=== PATIENT | female | born 1940 | race Caucasian/White ===

== ENCOUNTER 2024-10-28 17:09 | Inpatient (IN) | payer MEDICARE, SELFPAY ==
[2024-10-28 17:14] VITALS: BP 130/85; PULSE 109; RESP 15; TEMP 36.4; O2SAT 97; BMI 15.1
--- NOTE | 2024-10-28 18:21 | ED_ITS ---
HPI - Abdominal Pain 2 General: Chief Complaint: Abdominal Pain Stated Complaint: Right side pain Time Seen by Provider: 10/28/24 18:00 Source: patient Mode of arrival: ambulatory Limitations: no limitations History of Present Illness: 84-year-old female who states that she h as been having diffuse abdominal pain over the last week. States the pain is worse in her upper abdomen. She denies any vomiting or diarrhea denies any fever states pain is worse with movement rates her pain 8 out of 10 currently. Associated Symptoms: Denies chills, diarrhea, dysuria, fever(s), nausea and vomiting Related Data Allergies Allergy/AdvReac Type Severity Reaction Status Date / Time acetaminophen (From Tylenol) Allergy ALGY-Hives Verified 10/28/24 17:20 Sulfa (Sulfonamide Allergy ALGY-Hives Verified 10/28/24 17:20 Antibiotics) Review of Systems 2 Const: Denies: fever(s), chills, body aches or change in appetite ENMT: Denies: throat pain or dental pain Card: Denies: chest pain Resp: Denies: dyspnea GI: Reports: abdominal pain; Denies: nausea, vomiting or diarrhea : Denies: dysuria Musc: Denies: neck pain or back pain Skin/Breast: Denies: rash Neuro: Denies: headache(s) Physical Exam 2 Const: COMMON NORMALS: no acute distress, patient oriented x3 and healthy appearing HENMT: COMMON NORMALS: normocephalic and atraumatic HEAD & SCALP: n ormocephalic and atraumatic Eye: COMMON NORMALS: conjunctivae normal CONJUNCTIVA: Yes conjunctivae normal Neck/C-Spine: COMMON NORMALS: full ROM and supple Chest: COMMONS NORMALS: normal inspection of the chest Resp: COMMON NORMALS: normal respiratory effort, No retractions, No use of accessory muscles and clear to auscultation bilaterally AUSCULTATION: clear to auscultation bilaterally Cardio: COMMON NORMALS: regular rate, regular rhythm and No murmurs present (Cardio) RATE: regular rate RHYTHM: regular rhythm GI: COMMON NORMALS: Normal to inspection, nondistended, normoactive bowel sounds present, Soft to palpation and no masses PALPATION: Yes Soft to palpation OTHER: diffuse tenderness Extremity: COMMON NORMALS: normal to inspection and full ROM Neuro: COMMON NORMALS: patient oriented x3, moves all extremities and no focal motor deficits Psych: COMMON NORMALS: mental status grossly normal, Normal thought process present and cooperative THOUGHT PROCESS: Normal thought process present Skin: COMMON NORMALS: no rashes or lesions noted and no wounds GENERAL SKIN EXAM: no rashes or lesions noted Course 2 Vital Signs: Vital signs: Vital Signs Temperature 97.5 F L 10/28/24 17:14 Pulse Rate 101 H 10/28/24 19:53 Respiratory Rate 16 10/28/24 19:53 Blood Pressure 140/81 10/28/24 19:53 Pulse Oximetry 93 10/28/24 19:53 Oxygen Delivery Me thod Room Air 10/28/24 19:53 MDM - Abdominal Pain Medical Decision Making Patient presents here with abdominal pain CT showed colitis versus a carcinoma she does have an elevated white count her lactate is normal afebrile will start on antibiotics I did speak to surgeon on-call who was consulted we will admit to the hospitalist at this time. Medical Records I reviewed the patient's medical records. Lab Data I reviewed the patient's lab results. 10/28/24 18:27 10/28/24 18:27 Labs/Radiology: Radiology Impressions Abdomen/Pelvis CT 10/28/24 18:21 IMPRESSION: 1. Edema and wall thickening of the anterior wall of the transverse, which is inseparable from the anterior peritoneal reflection. There is anterior peritoneal omental caking, infiltration and haziness. There is no organized collection. Findings are indeterminate and may represent peritoneal/omental carcinomatosis from colonic malignancy, primary mesenteric malignancy or sequela of chronic colitis with peritonitis, although malignancy should be excluded. 2. Saccular aneurysm of the abdominal aorta, below the level of the renal artery origins and terminating 2.9 cm above the level of the aortic bifurcation. The aorta is dilated up to 3.3 cm. 3. Chronic appearing fracture of the proximal sacral body. 4. Emphysematous changes of the visualized lungs. 5. Large colonic stool burden. COMMENTS: Consistent with the [employer]'s Incidental Findings Committee white paper (J Am Dom Radiol 2018): Any incidental renal lesion less than 1 cm or classified as too small to characterize, or any incidental cystic renal lesion characterized as simple-appearing, is likely benign. No follow-up imaging is recommended for these lesions per consensus recommendations based on imaging criteria. Laboratory Results WBC 20.83 10^3/uL (3.29-11.43) H 10/28/24 18: RBC 4.85 10^6/uL (3.85-5.65) 10/28/24 18: Hgb 14.40 g/dL (11.27-16.99) 10/28/24 18: Hct 42.9 % (36-47) 10/28/24 18: MCV 88.5 fl (85-98) 10/28/24 18: MCH 29.7 pg (27-33) 10/28/24 18: MCHC 33.6 g/dL (30-55) 10/28/24 18: RDW 14.5 % (12.1-15.1) 10/28/24 18: Plt Count 499 10^3/cmm (157-399) H 10/28/24 18: MPV 9.5 fL (7.4-10.4) 10/28/24 18: Neut % (Auto) 86.0 % 10/28/24 18: Lymph % (Auto) 3.8 % 10/28/24 18: Cache % (Auto) 9.1 % 10/28/24 18: Eos % (Auto) 0.3 % 10/28/24 18: Baso % (Auto) 0.2 % 10/28/24 18: Neut # (Auto) 17.91 10^3/uL (1.8-7.7) H 10/28/24 18: Lymph # (Auto) 0.8 10^3/uL (0.8-4.8) 10/28/24 18: Cache # (Auto) 1.9 10^3/uL (0.2-0.9) H 10/28/24 18: Eos # (Auto) 0.1 10^3/uL (0.0-0.8) 10/28/24 18: Baso # (Auto) 0.0 10^3/uL (0.0-0.1) 10/28/24 18: Nucleated RBC % (auto) 0 % 10/28/24 18: Nucleated RBCs # 0.0 /100WBC 10/28/24 18: Sodium 126 mmol/L (136-145) L 10/28/24 18:27 Potassium 4.2 mmol/L (3.5-5.1) 10/28/24 18:27 Chloride 90 mmol/L (98-107) L 10/28/24 18: Carbon Dioxide 21 mmol/L (22-29) L 10/28/24 18: Anion Gap 19.2 (5-19) H 10/28/24 18: BUN 24 mg/dL (8-23) H 10/28/24 18: Creatinine 1.0 mg/dL (0.5-0.9) H 10/28/24 18: GFR Calculation Not Reportable 10/28/24 18: Glucose 166 mg/dL (65-115) H 10/28/24 18: Calculated Osmolality 270 mOsm/kg (285-295) L 10/28/24 18: Lactic Acid 1.6 mmol/L (0.5-2.2) 10/28/24 18: Calcium 8.9 mg/dL (8.5-10.5) 10/28/24 18: Total Bilirubin 0.5 mg/dL (0.15-1.2) 10/28/24 18: AST 11 U/L (0-32) 10/28/24 18: ALT 10 U/L (0-33) 10/28/24 18: Alkaline Phosphatase 109 U/L (35-105) H 10/28/24 18:27 Total Protein 6.6 g/dL (6.6-8.7) 10/28/24 18: Albumin 3.2 g/dL (3.5-5.2) L 10/28/24 18: Globulin 3.4 g/dL (1.3-4.6) 10/28/24 18: Lipase 10 U/L (13-60) L 10/28/24 18:27 Urine Color Yellow (Yellow) 10/28/24 18:59 Urine Appearance Clear (CLEAR) 10/28/24 18:59 Urine pH 5 (5-7) 10/28/24 18:59 Ur Specific [place] 1.015 (1.005-1.030) 10/28/24 18:59 Urine Protein 1+ (Negative) H 10/28/24 18:59 Urine Glucose (UA) Norm (Normal) 10/28/24 18:59 Urine Ketones 1+ (Negative) H 10/28/24 18:59 Urine Blood 2+ (Negative) H 10/28/24 18:59 Urine Nitrate Negative (Negative) 10/28/24 18:59 Urine Bilirubin 1+ (Negative) H 10/28/24 18:59 Urine Urobilinogen 1 mg/dL (Negative) H 10/28/24 18:59 Ur Leukocyte Esterase Trace (Negative) H 10/28/24 18:59 Urine RBC 11-20 /hpf (0-2) H 10/28/24 18:59 Urine WBC 0-5 /hpf (0-5) 10/28/24 18:59 Ur Squamous Epith Cells 0-5 /hpf (0-5) 10/28/24 18:59 Amorphous Sediment Not Reportable 10/28/24 18:59 Urine Bacteria None seen /hpf (NONE) 10/28/24 18:59 Hyaline Casts 3.30 /lpf 10/28/24 18:59 All radiology interpretation(s) finalized by discharge Discharge Plan Discharge Condition: Stable Print Language: Kazakh Coding Level of Care Code ED [employer] Teacher for Alisia Ricks
--- NOTE | 2024-10-28 18:21 | CTR_ITS ---
PROCEDURE INFORMATION: Exam: CT Abdomen And Pelvis With Contrast Exam date and time: 10/28/2024 7:42 PM Age: 84 years old Clinical indication: Pain and abnormal findings; Abnormal lab test; Elevated wbc; Abdominal pain; Localized; Lower abd pain with constipation. Wbc of 21k. TECHNIQUE: Imaging protocol: Computed tomography of the abdomen and pelvis with contrast. Radiation optimization: All CT scans at this facility use at least one of these dose optimization techniques: automated exposure control; mA and/or kV adjustment per patient size (includes targeted exams where dose is matched to clinical indication); or iterative reconstruction. Contrast material: OMNI 350; Contrast volume: 100 ml; Contrast route: INTRAVENOUS (IV); COMPARISON: No relevant prior studies available. RADIATION DOSE METRICS: Total DLP (mGy-cm): 225.13 FINDINGS: Lungs: Emphysematous changes of the visualized lungs. Subsegmental atelectasis in the right middle lobe, partially imaged. Diaphragm: There is a small hiatal hernia. Liver: The liver is unremarkable. Gallbladder and biliary ducts: Gallbladder fundal adenomyomatosis. There is no intra or extrahepatic biliary ductal dilatation. Pancreas: The pancreas is unremarkable. Spleen: The spleen is unremarkable. Adrenal glands: The adrenal glands are unremarkable. Kidneys and ureters: Bilateral simple renal cysts are present, as well as other subcentimeter hypodensities which are too small to characterize. Stomach and bowel: Colonic diverticulosis. Large colonic stool burden. There is edema and wall thickening of the anterior wall of the transverse colon (see for example series 3, images 22-30 and series 6, images 18-39). There is heterogeneous infiltration of the omentum and anterior soft tissues/anterior peritoneal reflection, which are indistinguishable from the bowel wall. There is no organized collection. Appendix: A normal appendix is identified. Intraperitoneal space: There is anterior omental caking and peritoneal nodularity, fat stranding and infiltration. There is small volume ascites. There is no free intraperitoneal air. Vasculature: The aorta demonstrates severe atherosclerotic calcification. There is a saccular aneurysm of the abdominal aorta, below the level of the renal artery origins and terminating 2.9 cm above the level of the aortic bifurcation. The aorta is dilated up to 3.3 cm. Lymph nodes: No enlarged lymph nodes by size criteria. Urinary bladder: The bladder is unremarkable. Reproductive: Uterus is unremarkable. No suspicious adnexal lesion seen. Bones/joints: The bones are diffusely demineralized. The spine demonstrates moderate degenerative changes at multiple levels. Chronic appearing fracture of the proximal sacral body. Soft tissues: Mild body wall edema. CT/CT abdomen pelvis w con* [id number] IMPRESSION: 1. Edema and wall thickening of the anterior wall of the transverse, which is inseparable from the anterior peritoneal reflection. There is anterior peritoneal omental caking, infiltration and haziness. There is no organized collection. Findings are indeterminate and may represent peritoneal/omental carcinomatosis from colonic malignancy, primary mesenteric malignancy or sequela of chronic colitis with peritonitis, although malignancy should be excluded. 2. Saccular aneurysm of the abdominal aorta, below the level of the renal artery origins and terminating 2.9 cm above the level of the aortic bifurcation. The aorta is dilated up to 3.3 cm. 3. Chronic appearing fracture of the proximal sacral body. 4. Emphysematous changes of the visualized lungs. 5. Large colonic stool burden. COMMENTS: Consistent with the [employer] [employer]'s Incidental Findings Committee white paper (J Am Dom Radiol 2018): Any incidental renal lesion less than 1 cm or classified as too small to characterize, or any incidental cystic renal lesion characterized as simple-appearing, is likely benign. No follow-up imaging is recommended for these lesions per consensus recommendations based on imaging criteria.
[2024-10-28 18:35] LABS: Basophils % 0.2 %; Eosinophils # 0.1 10^3/uL (0.0-0.8); Eosinophils % 0.3 %; Hematocrit 42.9 % (36-47); Lymphocytes # 0.8 10^3/uL (0.8-4.8); Lymphocytes % 3.8 %; Mean Corpuscular HGB Conc 33.6 g/dL (30-55); Mean Corpuscular Hemoglobin 29.7 pg (27-33); Mean Corpuscular Volume 88.5 fl (85-98); Mean Platelet Volume 9.5 fL (7.4-10.4); Monocytes # 1.9 10^3/uL (0.2-0.9); Monocytes % 9.1 %; Neutrophils # 17.91 10^3/uL (1.8-7.7); Nucleated Red Blood Cells % 0 %; Platelet Count 499 10^3/cmm (157-399); Red Blood Count 4.85 10^6/uL (3.85-5.65); Red Cell Distribution Width 14.5 % (12.1-15.1); White Blood Count 20.83 10^3/uL (3.29-11.43)
[2024-10-28 18:54] LABS: Alanine Aminotransferase 10 U/L (0-33); Albumin Level 3.2 g/dL (3.5-5.2); Alkaline Phosphatase 109 U/L (35-105); Anion Gap 19.2 (5-19); Aspartate Amino Transferase 11 U/L (0-32); Blood Urea Nitrogen 24 mg/dL (8-23); Calcium 8.9 mg/dL (8.5-10.5); Carbon Dioxide 21 mmol/L (22-29); Chloride 90 mmol/L (98-107); Creatinine Clr Calc Pharmacy 25.7784; Globulin 3.4 g/dL (1.3-4.6); Glucose 166 mg/dL (65-115); Lipase 10 U/L (13-60); Osmolality Calculated 270 mOsm/kg (285-295); Potassium 4.2 mmol/L (3.5-5.1); Sodium 126 mmol/L (136-145); Total Bilirubin 0.5 mg/dL (0.15-1.2); Total Protein 6.6 g/dL (6.6-8.7)
[2024-10-28 19:08] LABS: Lactic Sepsis W/Reflex 1.6 mmol/L (0.5-2.2)
[2024-10-28] MEDS: morphine 4 mg/mL SDV 1 mL IVP (19:21)
[2024-10-28] MEDS: sodium chloride 0.9% 1,000 ML 999 ML IV ×2 (19:21→22:16)
[2024-10-28] MEDS: ondansetron 2 mg/ML SDV 2 mL 4 MG IVP (19:21)
[2024-10-28 19:25] LABS: Add Urine Microscopic? YES; Bacteria Urine None Seen /hpf; Bilirubin Urine 1+ (Negative); Blood Urine 2+ (Negative); Glucose Urine UA Norm (Normal); Ketones Urine 1+ (Negative); Nitrate Urine Negative (Negative); Protein Urine 1+ (Negative); Specific Gravity, Urine 1.015 (1.005-1.030); Squamous Epithelial Cell Urine 0-5 /hpf (0-5); Urine Appearance Clear (CLEAR); Urine Color Yellow (Yellow); WBC Urine 0-5 /hpf (0-5); pH Urine 5 (5-7)
[2024-10-28 19:26] LABS: Add Urine Culture? No; Leukocyte Esterase Urine Trace (Negative); Urobilinogen Urine 1 mg/dL (Negative)
[2024-10-28] MEDS: iohexol 350 mg/mL 500 mL Btl (per mL) 70 ML IV (19:43)
[2024-10-28 19:53] VITALS: BP 140/81; PULSE 101; RESP 16; O2SAT 93
--- NOTE | 2024-10-28 20:43 | P.CONIM_ITS ---
Providers/Reason For Consult 2 Consulting Physician/Specialty*: Dr. Dacosta general surgery Reason for Consult*: Colitis History of Present Illness History of Present Illness Melia Caal is a 84 year old female who presents with mesogastric pain. White count 20,000. CT scan demonstrated an inflammatory process in the transverse colon. Omental caking. Patient has had significant weight loss. Passing gas and having bowel movements. Medications/Allergies Home Medications ?Medication ?Instructions ?Recorded ?Confirmed ?Last Taken ?Type clonazepam 0.5 mg tablet 0.25 - 0.5 mg PO BID PRN Anx iety 10/29/24 10/29/24 Unknown History fluticasone fur. 100 mcg-umeclid 1 inh inhalation JANIA Y 10/29/24 10/29/24 10/28/24 History 62.5 mcg-vilant 25 mcg inhalat.powder (Trelegy Ellipta) prednisone 10 mg tablet 10 mg PO DAILY 10/29/2410/1610/28/24 History Allergies Allergy/AdvReac Type Severity Reaction Status Date / Time acetaminophen (From Tylenol) Allergy ALGY-Hives Verified 10/28/24 17:20 Sulfa (Sulfonamide Allergy ALGY-Hives Verified 10/28/24 17:20 Antibiotics) PFSH Acute 2 PFSH: Medical History (Updated 10/29/24 @ 11:48 by Fabián Dacosta MD) COPD (chronic obstructive pulmonary disease) Surgical History (Updated 10/28/24 @ 22:20 by Kimo Balderrama MD) Hx of tonsillectomy Vitals/I&O/Wt Last Vital Signs Temp 97.5 F L 10/28/24 17:14 Pulse 101 H 10/28/24 19:53 Resp 16 10/28/24 19:53 BP 140/81 10/28/24 19:53 Pulse Ox 93 10/28/24 19:53 O2 Del Method Room Air 10/28/24 19:53 Weight last 48 hrs Weight 83 lb Physical Exam 2 Narrative: Chest: Unlabored breathing room air. Heart: Regular rate and rhythm. Abdomen: Soft, tender mesogastrium, nondistended. Data 10/29/24 03:46 10/29/24 03:46 A&P Assessment and plan (1) Colitis: (2) Colon abnormality: (3) Metastatic malignant neoplasm of unknown primary site: Plan 84-year-old female who presents with abdominal pain. Differential includes colitis, diverticulitis, carcinomatosis with unknown primary. Recommend treating as diverticulitis with a course of bowel rest, IV fluids, antibiotics, analgesics. She can be worked up as outpatient for a primary malignancy if she desires however she is deconditioned and not a good surgical candidate. Can consider endoscopy as outpatient as part of her workup. Colonoscopy during this admission is not advisable to the risk of perforation if she does have colitis or diverticulitis. PDMP PDMP Reviewed: Not Reviewed Coding Level of Care Code 62433 Diagnoses Colitis K52.9 Colon abnormality K63.9 Metastatic malignant neoplasm of unknown primary site C79.9; C80.1
[2024-10-28 21:00] VITALS: BP 127/78; PULSE 103; RESP 16; O2SAT 95
[2024-10-28 22:03] VITALS: BP 125/79; PULSE 104; RESP 16; O2SAT 93
[2024-10-28] MEDS: piperacillin-tazobactam 3.375 GM in sodium chloride 0.9% (plus) 50 ML IV (22:15)
--- NOTE | 2024-10-28 22:15 | PM.HP ---
Providers/Chief Complaint Admitting Physician: Kimo Balderrama MD Primary Care Provider: Daija Felder MD Chief Complaint: Right side pain History of Present Illness Melia Caal is a 84 year old female with history of abdominal pain referred for admission by Dr. Pathak for transverse colitis versus mesenteric caking from cancer. Patient has been seeing Dr. Daija Felder and was recommended colonoscopy but patient states she was concerned about the process and did not want to do it. She does not like medical care. Patient last few days has had abdominal pain was found to have white count of 20,000 sodium [address] scan shows thickening of the anterior wall of the transverse colon indistinguishable from the anterior wall of the abdomen suspicious for mesenteric caking. She is companied by her daughter Pooja Cheatham and also her granddaughter. Patient has never had a colonoscopy. She has had weight loss of 50 pounds in the last 1 year states her appetite is poor she has had constipation for years. She forces diarrhea by taking senna or mag citrate. She took mag citrate last couple days and vomited. Patient denies fevers or chills. She is treated primarily for COPD with Trelegy and daily prednisone but does not take her amlodipine for hypertension. Tobacco use is 5 cigarettes a day down from a pack a day for greater than 60 years. She started smoking at age 12. 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 She wants DNR status but is not absolutely sure that she would or would not have chemo, radiation or surgery if she has cancer. 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 no dysuria hematuria Hematologic no history of cancer she thinks she has had iron deficiency before Medications/Allergies Allergies Allergy/AdvReac Type Severity Reaction Status Date / Time acetaminophen (From Tylenol) Allergy ALGY-Hives Verified 10/28/24 17:20 Sulfa (Sulfonamide Allergy ALGY-Hives Verified 10/28/24 17:20 Antibiotics) PFSH Acute PFSH: Medical History (Updated 10/28/24 @ 22:21 by Kimo Balderrama MD) COPD (chronic obstructive pulmonary disease) Surgical History (Updated 10/28/24 @ 22:20 by Kimo Balderrama MD) Hx of tonsillectomy Vitals/I&O/Wt Last Vital Signs Temp 97.5 F L 10/28/24 17:14 Pulse 104 H 10/28/24 22:03 Resp 16 10/28/24 22:03 BP 125/79 10/28/24 22:03 Pulse Ox 93 10/28/24 22:03 O2 Del Method Room Air 10/28/24 21:00 10/28/24 10/28/24 10/28/24 06:59 14:59 22:59 Intake Total 1000 / 1000 Balance 1000 / 1000 Weight last 48 hrs Weight 37.648 kg Physical Exam Narrative: General well-developed well-nourished female in no acute cardiopulmonary stress CV regular rate and rhythm Lungs she has crackles in the left midlung field which does not completely clear with coughing but improves Abdomen decreased bowel tones she has a mass in the upper abdomen going across the width of the abdomen 2-1/2 x 6 inch. This is tender to palpation. There is not rebound tenderness Calves no pretibial edema she is tender to palpation no asymmetry Mood and affect are appropriate she is alert and orient x 3 Data 10/28/24 18:27 10/28/24 18:27 Micro: Microbiology 10/28/24 20:37 Blood Culture - Preliminary Blood SPECIMEN COLLECTED 10/28/24 20:40 Blood Culture - Preliminary Blood SPECIMEN COLLECTED A&P Assessment and plan (1) Colitis: No report of perforation but there is mesenteric thickening and given the weight loss this is most consistent with cancer. Will treat with Zosyn started in the emergency department patient is allergic to acetaminophen but also fluoroquinolone (2) Colon abnormality: Dr. Dacosta to see the patient in the morning. I am going to add iron studies. Sounds like the patient needs colonoscopy with biopsies (3) COPD (chronic obstructive pulmonary disease): Continue prednisone daily and inhaler will give as needed albuterol PDMP PDMP Reviewed: Not Reviewed Attestations Medical Necessity Statement*: Patient is admitted for IV antibiotics for colitis. Also needs to see the surgeon Coding Level of Care Code Acute Code for [facility] Diagnoses Colitis K52.9 Colon abnormality K63.9 COPD (chronic obstructive pulmonary disease) J44.9 Time Spent (min) 75
[2024-10-28 22:48] LABS: Erythrocyte Sedimentation Rate 55 mm/hr (0-15)
[2024-10-28 23:11] VITALS: BP 120/84; PULSE 105; RESP 17; TEMP 36.7; O2SAT 91
[2024-10-28 23:14] LABS: Carcinoembryonic Antigen 2.2 ng/mL (0.0-4.7)
[2024-10-28 23:33] LABS: Iron 12 ug/dL (37-145); Percent Saturation 7.6 % (20-50); Total Iron Binding Capacity 156 mcg/dl; Unsaturated Iron Binding 144 ug/dL (112-347)
[2024-10-28] MEDS: enoxaparin 40 mg/0.4 mL Syringe SUBCUT (23:55)
[2024-10-28] MEDS: sodium chloride 0.9% 1,000 ML 100 ML IV (23:55)
[2024-10-29 04:40] LABS: Basophils % 0.2 %; Hematocrit 38.2 % (36-47); Lymphocytes # 1.2 10^3/uL (0.8-4.8); Lymphocytes % 5.7 %; Mean Corpuscular HGB Conc 32.5 g/dL (30-55); Mean Corpuscular Hemoglobin 29.4 pg (27-33); Mean Corpuscular Volume 90.5 fl (85-98); Monocytes # 2.3 10^3/uL (0.2-0.9); Monocytes % 11.5 %; Neutrophils # 16.64 10^3/uL (1.8-7.7); Nucleated Red Blood Cells % 0 %; Platelet Count 453 10^3/cmm (157-399); Red Blood Count 4.22 10^6/uL (3.85-5.65); Red Cell Distribution Width 14.6 % (12.1-15.1); White Blood Count 20.31 10^3/uL (3.29-11.43)
[2024-10-29 04:59] LABS: Blood Urea Nitrogen 19 mg/dL (8-23); Calcium 7.8 mg/dL (8.5-10.5); Carbon Dioxide 20 mmol/L (22-29); Chloride 99 mmol/L (98-107); Creatinine Clr Calc Pharmacy 37.0876; Glucose 120 mg/dL (65-115); Magnesium 2.3 mg/dL (1.7-2.3); Osmolality Calculated 273 mOsm/kg (285-295); Phosphorus 2.9 mg/dL (2.5-4.5); Sodium 130 mmol/L (136-145)
[2024-10-29 06:14] VITALS: BP 112/64; PULSE 90; RESP 12; TEMP 36.6; O2SAT 93
[2024-10-29 06:16] VITALS: BMI 18.8
[2024-10-29 07:22] VITALS: BP 108/69; PULSE 86; RESP 18; TEMP 37.1; O2SAT 93
[2024-10-29 08:26] LABS: C Reactive Protein 259.4 mg/L (0.0-4.9)
[2024-10-29 08:34] LABS: Procalcitonin 0.35 ng/mL (0-0.5)
[2024-10-29] MEDS: docusate sodium 100 mg Capsule PO ×2 (08:38→17:10)
[2024-10-29] MEDS: magnesium hydroxide 30 mL UDC PO (08:38)
[2024-10-29] MEDS: TRELEGY ELLIPTA 1 EACH INHALATION (08:38)
[2024-10-29] MEDS: famotidine 20 mg Tablet PO ×2 (08:38→17:10)
[2024-10-29] MEDS: predniSONE 10 mg Tablet PO (08:38)
[2024-10-29] MEDS: sodium chloride 0.9% 1,000 ML 100 ML IV ×2 (08:54→22:26)
[2024-10-29 09:00] VITALS: PULSE 87; RESP 18; O2SAT 93
--- NOTE | 2024-10-29 10:10 | P.PN_ITS ---
Subjective 2 Subjective: Patient is awake and alert. Denies abdominal pain. Reports general surgery saw her this morning. Family inquires about home oxygen. Medications: Reviewed: Yes Vitals/I&O/Wt Last Vital Signs Temp 98.8 F 10/29/24 07:22 Pulse 87 10/29/24 09:00 Resp 18 10/29/24 09:00 BP 108/69 10/29/24 07:22 Pulse Ox 93 10/29/24 09:00 O2 Del Method Room Air 10/29/24 09:00 10/28/24 10/29/24 10/29/24 22:59 06:59 14:59 Intake Total 1000 / 1000 1050 / 2050 1018.333 / 1018.333 Balance 1000 / 1000 1050 / 2050 1018.333 / 1018.333 Weight last 48 hrs Weight 46.72 kg Weight 46.72 kg Weight 37.648 kg Physical Exam 2 Narrative: General: Patient is awake. In bed. Head: Normocephalic. Atraumatic. EOM intact. Neck: No JVD. Cardiovascular: RRR. No gallops. No murmurs. Lungs: Clear to auscultation, no use of accessory muscles, no crackles or wheezes. Skin: No jaundice. No rashes. Abdomen: Normal bowel sounds, abdomen soft and nontender. Extremities: No cyanosis or clubbing. Musculoskeletal: No swollen or erythematous joints. Neurological: Moves all 4 extremities. No myoclonus. Data 10/29/24 03:46 10/29/24 03:46 Micro: Microbiology 10/28/24 20:37 Blood Culture - Preliminary Blood SPECIMEN COLLECTED 10/28/24 20:40 Blood Culture - Preliminary Blood SPECIMEN COLLECTED A&P Assessment and plan (1) Colitis: (2) Colon abnormality: (3) COPD (chronic obstructive pulmonary disease): Plan Wall thickening/edema of anterior transverse colon Anterior peritoneal omental caking - Differential includes colitis, malignancy, sequela chronic colitis - General Surgery's been consulted, follow-up recommendations - Continue Zosyn for colitis coverage - Inflammatory markers requested - Continue clear liquid diet, advance as tolerated Constipation - Large colonic stool burden - Bowel regiment 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 Coding Level of Care Code Acute Code for [facility] Diagnoses Colitis K52.9 Colon abnormality K63.9 COPD (chronic obstructive pulmonary disease) J44.9
--- NOTE | 2024-10-29 11:05 | PC.CHAP ---
Pastoral Care Encounter/Spiritual Assessment Type of Contact [] Declined comic artist visit [] Patient/Family/Request visit [] Outpatient visit [] Follow-up visit [] Physician referral [] Code/Alert [x] Routine visit [] Staff referral [] Actively dying [] Patient sleeping [x] Family support [] [] Out of room [] Palliative care [] [] Receiving care in room [] Pre-surgical visit [] Trauma [] Long length of stay [] ICU visit [] Other: Relational/Emotional Strength [] Patient feels connected with others/family/visitors/staff [] Distress [] Loneliness/isolation [] Abandonment Spirituality of Patient [x] Person of Val [] Attends Episcopal of their Val [x] Believes in Prayer [] Reads Bible or Sabianism materials [] There are Spiritual issues to be addressed Chief Deputy Clerk/Bailiff Interventions [x] Prayer [x] Active listening [] Non-anxious presence [] Spiritual/emotional support [] Crisis/trauma care [] Spiritual counseling [] Bereavement support [] Provided bereavement packet [x] Provided Bible/devotional materials [] Provided toy/stuffed animal, coloring book to patient or family member [] Provided Communion [] Anointing/[place] [] Salvation [x] Completed spiritual assessment [] Other: Impact on Illness or Injury [] Angry [] Fearful [] Anxious [] Often cries [] Exhaustion [] Unable to work [] Unable to attend scientologist [] Unable to walk/stand [] Unable to read [] Unable to drive [] Unable to eat/drink [] Unable to sleep [] Unable to be with family [] Patient intubated [] Other: Summary Time spent with patient 10 min
--- NOTE | 2024-10-29 11:30 | P.PN_ITS ---
Subjective 2 Subjective: Persistent mesogastric pain Non peritonitic Vitals/I&O/Wt Last Vital Signs Temp 98.8 F 10/29/24 07:22 Pulse 87 10/29/24 09:00 Resp 18 10/29/24 09:00 BP 108/69 10/29/24 07:22 Pulse Ox 93 10/29/24 09:00 O2 Del Method Room Air 10/29/24 09:00 10/28/24 10/29/24 10/29/24 22:59 06:59 14:59 Intake Total 1000 / 1000 1050 / 2050 1018.333 / 1018.333 Balance 1000 / 1000 1050 / 2050 1018.333 / 1018.333 Weight last 48 hrs Weight 103 lb Weight 103 lb Weight 83 lb Physical Exam 2 Narrative: Chest: Unlabored breathing room air. Heart: Regular rate and rhythm. Abdomen: Soft, tender meso gastrium, nondistended. Data 10/29/24 03:46 10/29/24 03:46 Micro: Microbiology 10/28/24 20:37 Blood Culture - Preliminary Blood SPECIMEN COLLECTED 10/28/24 20:40 Blood Culture - Preliminary Blood SPECIMEN COLLECTED A&P Assessment and plan (1) Metastatic malignant neoplasm of unknown primary site: (2) Colitis: (3) Colon abnormality: Plan 84-year-old female who presents with abdominal pain. Differential includes colitis, diverticulitis, carcinomatosis with unknown primary. Continue bowel rest and IV antibiotics. Had to extensive discussion with the family regarding her clinical picture. If her belly pain improves she can be worked up as outpatient by oncology. PDMP PDMP Reviewed: Not Reviewed Attestations 2 Medical Necessity Statement*: N/A Coding Level of Care Code 23656 Diagnoses Metastatic malignant neoplasm of unknown primary site C79.9; C80.1 Colitis K52.9 Colon abnormality K63.9
[2024-10-29 11:41] VITALS: BP 107/72; PULSE 83; RESP 17; TEMP 36.8; O2SAT 94
--- NOTE | 2024-10-29 11:41 | PC.SOCIAL ---
IMM Update pg 2 of IMM Updated and reviewed w/ patient. Copy provided and copy dated, initialed and placed in chart.
[2024-10-29 16:25] VITALS: BP 116/78; PULSE 85; RESP 18; TEMP 36.4; O2SAT 96
[2024-10-29 20:43] VITALS: BP 123/74; PULSE 76; RESP 16; TEMP 36.6; O2SAT 96
[2024-10-29] MEDS: sennosides 8.6 mg Tablet 17.2 MG PO (21:48)
[2024-10-29] MEDS: enoxaparin 40 mg/0.4 mL Syringe SUBCUT (22:58)
[2024-10-30] VITALS (7 sets, daily range): BP systolic 113–144; BP diastolic 63–82; PULSE 76–84; RESP 15–18; TEMP 36.4–36.7; O2SAT 94–98; BMI 18.8
[2024-10-30 05:18] LABS: Basophils % 0.3 %; Eosinophils % 0.2 %; Hematocrit 33.6 % (36-47); Lymphocytes # 1.4 10^3/uL (0.8-4.8); Lymphocytes % 10.7 %; Mean Corpuscular HGB Conc 31.8 g/dL (30-55); Mean Corpuscular Hemoglobin 29.1 pg (27-33); Mean Corpuscular Volume 91.3 fl (85-98); Mean Platelet Volume 9.9 fL (7.4-10.4); Monocytes # 1.2 10^3/uL (0.2-0.9); Monocytes % 9.1 %; Neutrophils # 9.96 10^3/uL (1.8-7.7); Neutrophils % 79.3 %; Nucleated Red Blood Cells % 0 %; Platelet Count 400 10^3/cmm (157-399); Red Blood Count 3.68 10^6/uL (3.85-5.65); Red Cell Distribution Width 14.6 % (12.1-15.1); White Blood Count 12.58 10^3/uL (3.29-11.43)
[2024-10-30 05:43] LABS: Alanine Aminotransferase 7 U/L (0-33); Albumin Level 2.6 g/dL (3.5-5.2); Alkaline Phosphatase 74 U/L (35-105); Anion Gap 15.9 (5-19); Aspartate Amino Transferase 9 U/L (0-32); Blood Urea Nitrogen 16 mg/dL (8-23); Calcium 7.8 mg/dL (8.5-10.5); Carbon Dioxide 20 mmol/L (22-29); Chloride 103 mmol/L (98-107); Creatinine Clr Calc Pharmacy 41.7235; Globulin 2.3 g/dL (1.3-4.6); Glucose 48 mg/dL (65-115); Magnesium 2.6 mg/dL (1.7-2.3); Osmolality Calculated 278 mOsm/kg (285-295); Potassium 3.9 mmol/L (3.5-5.1); Sodium 135 mmol/L (136-145); Total Bilirubin 0.3 mg/dL (0.15-1.2); Total Protein 4.9 g/dL (6.6-8.7)
[2024-10-30] MEDS: sodium chloride 0.9% 1,000 ML 100 ML IV (06:30)
[2024-10-30] MEDS: predniSONE 10 mg Tablet PO (09:17)
[2024-10-30] MEDS: famotidine 20 mg Tablet PO ×2 (09:17→17:38)
[2024-10-30] MEDS: docusate sodium 100 mg Capsule PO ×2 (09:17→17:38)
[2024-10-30] MEDS: TRELEGY ELLIPTA 1 EACH INHALATION (09:18)
[2024-10-30] MEDS: piperacillin-tazobactam 3.375 GM in sodium chloride 0.9% (plus) 50 ML IV ×2 (09:28→16:32)
--- NOTE | 2024-10-30 09:35 | PC.NURSE ---
wasted three medications this am due to patient dropping in the floor Had to wasted colace a second time due to nurse dropping in the floor.
--- NOTE | 2024-10-30 10:41 | P.PN_ITS ---
Subjective 2 Subjective: Passing gas Tolerating clear liquids Abdomen soft nondistended. Pain significantly improved. Vitals/I&O/Wt Last Vital Signs Temp 97.5 F L 10/30/24 08:00 Pulse 84 10/30/24 09:32 Resp 18 10/30/24 09:32 BP 113/63 10/30/24 08:00 Pulse Ox 98 10/30/24 09:32 O2 Del Method Room Air 10/30/24 09:32 10/29/24 10/30/24 10/30/24 22:59 06:59 14:59 Intake Total 1000 / 8.333 1000 / 3038.333 240 / 240 Balance 1000 / 8.333 1000 / 3038.333 240 / 240 Weight last 48 hrs Weight 103 lb Weight 103 lb Weight 103 lb Weight 83 lb Physical Exam 2 Narrative: Chest: Unlabored breathing room air. No lymphadenopathy. Heart: Regular rate and rhythm. Abdomen: Soft, nontender, nondistended. No masses or lymphadenopathy. Data 10/30/24 04:36 10/30/24 04:36 Micro: Microbiology 10/28/24 20:37 Blood Culture - Preliminary Blood NEGATIVE TO DATE 10/28/24 20:40 Blood Culture - Preliminary Blood NEGATIVE TO DATE A&P Assessment and plan (1) Metastatic malignant neoplasm of unknown primary site: (2) Colitis: Plan 84-year-old female who presented with abdominal pain and possible carcinomatosis. Pain improved. Tolerating clear liquids. Okay to advance to regular diet. If she tolerates this well she can be discharged and follow-up with me in 2 weeks for possible colonoscopy. Also advise follow-up with oncology for workup of carcinomatosis with unknown primary. PDMP PDMP Reviewed: Not Reviewed Attestations 2 Medical Necessity Statement*: N/A Coding Level of Care Code 56100 Diagnoses Metastatic malignant neoplasm of unknown primary site C79.9; C80.1 Colitis K52.9
--- NOTE | 2024-10-30 11:48 | PC.NURSE ---
Verbal orders from Dr. Navarrete to give patient a regular diet, if she does well patient can discharge from his perspective. Follow up in Clinic in two weeks.
[2024-10-30 12:01] LABS: Glucose Point of Care 72 mg/dL (70-110)
[2024-10-30] MEDS: iron sucrose 200 MG in sodium chloride 0.9% (100 ml) 100 ML 220 MG IV (13:44)
--- NOTE | 2024-10-30 14:41 | P.PN_ITS ---
Subjective 2 Subjective: Saw her at bedside this morning. Denies any new complaints. Family at bedside, concerned about bilateral lower extremity edema. Medications: Reviewed: Yes Vitals/I&O/Wt Last Vital Signs Temp 97.7 F 10/30/24 12:00 Pulse 82 10/30/24 12:00 Resp 16 10/30/24 12:00 BP 120/78 10/30/24 12:00 Pulse Ox 95 10/30/24 12:00 O2 Del Method Room Air 10/30/24 12:00 10/29/24 10/30/24 10/30/24 22:59 06:59 14:59 Intake Total 1000 / 2038.333 1000 / 3038.333 480 / 480 Balance 1000 / 2038.333 1000 / 3038.333 480 / 480 Weight last 48 hrs Weight 46.72 kg Weight 46.72 kg Weight 46.72 kg Weight 37.648 kg Physical Exam 2 Narrative: General: Patient is awake. In bed. Head: Normocephalic. Atraumatic. EOM intact. Neck: No JVD. Cardiovascular: RRR. No gallops. No murmurs. Lungs: Clear to auscultation, no use of accessory muscles, no crackles or wheezes. Skin: No jaundice. No rashes. Abdomen: Normal bowel sounds, abdomen soft and nontender. Extremities: No cyanosis or clubbing. Musculoskeletal: No swollen or erythematous joints. Neurological: Moves all 4 extremities. No myoclonus. Data 10/30/24 04:36 10/30/24 04:36 Micro: Microbiology 10/28/24 20:37 Blood Culture - Preliminary Blood NEGATIVE TO DATE 10/28/24 20:40 Blood Culture - Preliminary Blood NEGATIVE TO DATE A&P Assessment and plan (1) Colitis: (2) Colon abnormality: (3) COPD (chronic obstructive pulmonary disease): Plan Wall thickening/edema of anterior transverse colon Anterior peritoneal omental caking - Differential includes colitis, malignancy, sequela chronic colitis - General Surgery's been consulted, follow-up recommendations - Continue Zosyn for colitis coverage - Inflammatory markers requested - Continue clear liquid diet, advance as tolerated Constipation - Large colonic stool burden - Bowel regiment 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 Surgery recommendations appreciated Started on regular diet. Will follow-up labs in a.m. probable discharge in a.m. and follow-up with surgery as an outpatient in 2 weeks for possible colonoscopy. Also advised follow-up with oncology as outpatient for further workup of carcinomatosis with unknown primary. Bilateral lower extremity edema likely secondary to IV fluids and bedbound. Encourage ambulation and out of bed to chair. Will discontinue IV fluids and monitor. PDMP PDMP Reviewed: Not Reviewed Attestations 2 Medical Necessity Statement*: Patient requires ongoing hospitalization for IV antibiotics, serial exams and supportive care. Anticipating discharge in a.m. Time Spent in Patient Care: 16 - 35 minutes Coding Level of Care Code Acute Code for Chg Fwd Diagnoses Colitis K52.9 Colon abnormality K63.9 COPD (chronic obstructive pulmonary disease) J44.9 Time Spent (min) 20
[2024-10-30 16:35] LABS: Glucose Point of Care 84 mg/dL (70-110)
--- NOTE | 2024-10-30 19:07 | PC.NURSE ---
Feet were a 2+ swollen late morning which were no swelling this am. Patient sitting on side of bed most of morning. Dr. Matthews notified of swelling and this nurse did a stroke [facility] stroke on patient in room. Patient was perfect on all with excellent saturator. Patients daughter thought her face looked different. This nurse did not notice any changes.
[2024-10-30] MEDS: sennosides 8.6 mg Tablet 17.2 MG PO (20:49)
[2024-10-30] MEDS: enoxaparin 40 mg/0.4 mL Syringe SUBCUT (20:50)
[2024-10-31] VITALS: BP 125/69; PULSE 77; RESP 15; TEMP 36.6; O2SAT 97
[2024-10-31] MEDS: piperacillin-tazobactam 3.375 GM in sodium chloride 0.9% (plus) 50 ML IV (00:20)
[2024-10-31 05:42] VITALS: BMI 18.8
[2024-10-31 07:02] LABS: Glucose Point of Care 69 mg/dL (70-110)
[2024-10-31 07:36] VITALS: PULSE 80; RESP 16; O2SAT 96
[2024-10-31 07:49] VITALS: BP 158/90; PULSE 80; RESP 16; TEMP 36.6; O2SAT 93
[2024-10-31] MEDS: docusate sodium 100 mg Capsule PO (09:00)
[2024-10-31] MEDS: famotidine 20 mg Tablet PO (09:00)
[2024-10-31] MEDS: predniSONE 10 mg Tablet PO (09:00)
--- NOTE | 2024-10-31 10:00 | PC.SOCIAL ---
IMM Update pg 2 of IMM Updated and reviewed w/ patient. Copy provided and copy dated, initialed and placed in chart.
--- NOTE | 2024-10-31 10:40 | PM.DCS ---
Discharge Providers Date of Admission: 10/28/24 20:37 Date of Discharge: October 31, 2024 Attending Provider at Admission: Kimo Balderrama MD Attending Provider at Discharge: Adela Matthews MD Diagnoses at Discharge Discharge Diagnosis (1) Colitis: Status: Acute (2) Colon abnormality: Status: Acute (3) COPD (chronic obstructive pulmonary disease): Status: Acute Reason for Visit Reason for Visit: Right side pain Brief History: Melia Caal is a 84 year old female with history of abdominal pain referred for admission by Dr. Pathak for transverse colitis versus mesenteric caking from cancer. Patient has been seeing Dr. Daija Felder and was recommended colonoscopy but patient states she was concerned about the process and did not want to do it. She does not like medical care. Patient last few days has had abdominal pain was found to have white count of 20,000 sodium [address] scan shows thickening of the anterior wall of the transverse colon indistinguishable from the anterior wall of the abdomen suspicious for mesenteric caking. She is companied by her daughter Pooja Cheatham and also her granddaughter. Patient has never had a colonoscopy. She has had weight loss of 50 pounds in the last 1 year states her appetite is poor she has had constipation for years. She forces diarrhea by taking senna or mag citrate. She took mag citrate last couple days and vomited. Patient denies fevers or chills. She is treated primarily for COPD with Trelegy and daily prednisone but does not take her amlodipine for hypertension. Tobacco use is 5 cigarettes a day down from a pack a day for greater than 60 years. She started smoking at age 12. 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 She wants DNR status but is not absolutely sure that she would or would not have chemo, radiation or surgery if she has cancer. 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 Surgery recommendations appreciated Started on regular diet. Will follow-up labs in a.m. probable discharge in a.m. and follow-up with surgery as an outpatient in 2 weeks for possible colonoscopy. Also advised follow-up with oncology as outpatient for further workup of carcinomatosis with unknown primary. Bilateral lower extremity edema likely secondary to IV fluids and bedbound. Encourage ambulation and out of bed to chair. Will discontinue IV fluids and monitor. She is doing well, will discharge her today with oral antibiotics ciprofloxacin and flagyl. Physical Exam Narrative: General: Patient is awake. In bed. Head: Normocephalic. Atraumatic. EOM intact. Neck: No JVD. Cardiovascular: RRR. No gallops. No murmurs. Lungs: Clear to auscultation, no use of accessory muscles, no crackles or wheezes. Skin: No jaundice. No rashes. Abdomen: Normal bowel sounds, abdomen soft and nontender. Extremities: No cyanosis or clubbing. Musculoskeletal: No swollen or erythematous joints. Neurological: Moves all 4 extremities. No myoclonus. Discharge Data Studies Completed and Pending Completed Studies During Hospitalization Category Date Time Status CT abdomen pelvis w con* [id number] Stat Cat Scan 10/28/24 18:21 Completed Pending at discharge Category Date Time Status BMP [Basic Metabolic Panel] AM LABS Lab 10/31/24 04:00 Ordered Blood Culture Stat Lab 10/28/24 20:37 Results CBC Auto Diff [Complete Blood Count w/Auto] AM LABS Lab 10/31/24 04:00 Ordered Radiology Impressions Abdomen/Pelvis CT 10/28/24 18:21 IMPRESSION: 1. Edema and wall thickening of the anterior wall of the transverse, which is inseparable from the anterior peritoneal reflection. There is anterior peritoneal omental caking, infiltration and haziness. There is no organized collection. Findings are indeterminate and may represent peritoneal/omental carcinomatosis from colonic malignancy, primary mesenteric malignancy or sequela of chronic colitis with peritonitis, although malignancy should be excluded. 2. Saccular aneurysm of the abdominal aorta, below the level of the renal artery origins and terminating 2.9 cm above the level of the aortic bifurcation. The aorta is dilated up to 3.3 cm. 3. Chronic appearing fracture of the proximal sacral body. 4. Emphysematous changes of the visualized lungs. 5. Large colonic stool burden. COMMENTS: Consistent with the [employer]'s Incidental Findings Committee white paper (J Am Dom Radiol 2018): Any incidental renal lesion less than 1 cm or classified as too small to characterize, or any incidental cystic renal lesion characterized as simple-appearing, is likely benign. No follow-up imaging is recommended for these lesions per consensus recommendations based on imaging criteria. Laboratory Results WBC 12.58 10^3/uL (3.29-11.43) H 10/30/24 04:36 RBC 3.68 10^6/uL (3.85-5.65) L 10/30/24 04:36 Hgb 10.70 g/dL (11.27-16.99) L 10/30/24 04:36 Hct 33.6 % (36-47) L 10/30/24 04:36 MCV 91.3 fl (85-98) 10/30/24 04:36 MCH 29.1 pg (27-33) 10/30/24 04:36 MCHC 31.8 g/dL (30-55) 10/30/24 04:36 RDW 14.6 % (12.1-15.1) 10/30/24 04:36 Plt Count 400 10^3/cmm (157-399) H 10/30/24 04:36 MPV 9.9 fL (7.4-10.4) 10/30/24 04:36 Neut % (Auto) 79.3 % 10/30/24 04:36 Lymph % (Auto) 10.7 % 10/30/24 04:36 [place] % (Auto) 9.1 % 10/30/24 04:36 Eos % (Auto) 0.2 % 10/30/24 04:36 Baso % (Auto) 0.3 % 10/30/24 04:36 Neut # (Auto) 9.96 10^3/uL (1.8-7.7) H 10/30/24 04:36 Lymph # (Auto) 1.4 10^3/uL (0.8-4.8) 10/30/24 04:36 [place] # (Auto) 1.2 10^3/uL (0.2-0.9) H 10/30/24 04:36 Eos # (Auto) 0.0 10^3/uL (0.0-0.8) 10/30/24 04:36 Baso # (Auto) 0.0 10^3/uL (0.0-0.1) 10/30/24 04:36 Nucleated RBC % (auto) 0 % 10/30/24 04:36 Nucleated RBCs # 0.0 /100WBC 10/30/24 04:36 ESR 55 mm/hr (0-15) H 10/28/24 18:27 Sodium 135 mmol/L (136-145) L 10/30/24 04:36 Potassium 3.9 mmol/L (3.5-5.1) 10/30/24 04:36 Chloride 103 mmol/L (98-107) 10/30/24 04:36 Carbon Dioxide 20 mmol/L (22-29) L 10/30/24 04:36 Anion Gap 15.9 (5-19) 10/30/24 04:36 BUN 16 mg/dL (8-23) 10/30/24 04:36 Creatinine 0.8 mg/dL (0.5-0.9) 10/30/24 04:36 GFR Calculation Not Reportable 10/30/24 04:36 Glucose 48 mg/dL (65-115) L 10/30/24 04:36 POC Glucose 69 mg/dL (70-110) L 10/31/24 06:58 Calculated Osmolality 278 mOsm/kg (285-295) L 10/30/24 04:36 Lactic Acid 1.6 mmol/L (0.5-2.2) 10/28/24 18:27 Calcium 7.8 mg/dL (8.5-10.5) L 10/30/24 04:36 Phosphorus 3.0 mg/dL (2.5-4.5) 10/30/24 04:36 Magnesium 2.6 mg/dL (1.7-2.3) H 10/30/24 04:36 Iron 12 ug/dL (37-145) L 10/28/24 18:27 Iron Cancelled 10/28/24 18:27 TIBC 156 mcg/dl 10/28/24 18:27 % Saturation 7.6 % (20-50) L 10/28/24 18:27 Unsat Iron Binding 144 ug/dL (112-347) 10/28/24 18:27 Total Bilirubin 0.3 mg/dL (0.15-1.2) 10/30/24 04:36 AST 9 U/L (0-32) 10/30/24 04:36 ALT 7 U/L (0-33) 10/30/24 04:36 Alkaline Phosphatase 74 U/L (35-105) 10/30/24 04:36 C-Reactive Protein 259.4 mg/L (0.0-4.9) H 10/29/24 03:46 Total Protein 4.9 g/dL (6.6-8.7) L 10/30/24 04:36 Albumin 2.6 g/dL (3.5-5.2) L 10/30/24 04:36 Globulin 2.3 g/dL (1.3-4.6) 10/30/24 04:36 Lipase 10 U/L (13-60) L 10/28/24 18:27 Carcinoembryonic Ag 2.0 ng/mL (0.0-4.7) 10/29/24 03:46 Procalcitonin 0.35 ng/mL (0-0.5) 10/29/24 03:46 Urine Color Yellow (Yellow) 10/28/24 18:59 Urine Appearance Clear (CLEAR) 10/28/24 18:59 Urine pH 5 (5-7) 10/28/24 18:59 Ur Specific [place] 1.015 (1.005-1.030) 10/28/24 18:59 Urine Protein 1+ (Negative) H 10/28/24 18:59 Urine Glucose (UA) Norm (Normal) 10/28/24 18:59 Urine Ketones 1+ (Negative) H 10/28/24 18:59 Urine Blood 2+ (Negative) H 10/28/24 18:59 Urine Nitrate Negative (Negative) 10/28/24 18:59 Urine Bilirubin 1+ (Negative) H 10/28/24 18:59 Urine Urobilinogen 1 mg/dL (Negative) H 10/28/24 18:59 Ur Leukocyte Esterase Trace (Negative) H 10/28/24 18:59 Urine RBC 11-20 /hpf (0-2) H 10/28/24 18:59 Urine WBC 0-5 /hpf (0-5) 10/28/24 18:59 Ur Squamous Epith Cells 0-5 /hpf (0-5) 10/28/24 18:59 Amorphous Sediment Not Reportable 10/28/24 18:59 Urine Bacteria None seen /hpf (NONE) 10/28/24 18:59 Hyaline Casts 3.30 /lpf 10/28/24 18:59 Vitals Last Vital Signs Temp 97.8 F 10/31/24 07:49 Pulse 80 10/31/24 07:49 Resp 16 10/31/24 07:49 BP 158/90 10/31/24 07:49 Pulse Ox 93 10/31/24 07:49 O2 Del Method Room Air 10/31/24 07:49 Discharge Plan Discharge Patient Disposition: Home Condition: Stable Prescriptions: New ciprofloxacin HCl 500 mg tablet 500 mg PO BID Qty: 10 0RF metronidazole 500 mg tablet 500 mg PO Q8H Qty: 15 0RF Continued prednisone 10 mg tablet 10 mg PO DAILY clonazepam 0.5 mg tablet 0.25 - 0.5 mg PO BID PRN (Reason: Anxiety) Trelegy Ellipta 100-62.5-25 mcg blister with device 1 inh INHALATION DAILY Discharge Orders: Discharge Order (Routine); Ordered 10/31/24 Ordered By: Adela Matthews Referrals: Fabián Dacosta MD [Physician] - 11/15/24 8:20 am Daija Felder DO [Referring] - 11/02/24 2:00 pm Tiffany Shelby MD [Hospitalist] - Discharge Diet: Advance as tolerated Discharge Activity: Increase activity as tolerated Patient Instructions: Opioid Safety Discharge Attestations Time Spent in Discharge Care*: less than 30 min Quality Metrics Clinical Quality Measures [ No reported AMI, CVA or VTE this stay] Coding Level of Care Code Acute Code for Chg Fwd Diagnoses Colitis K52.9 Colon abnormality K63.9 COPD (chronic obstructive pulmonary disease) J44.9 Time Spent (min) 20
--- NOTE | 2024-10-31 10:56 | P.PN_ITS ---
Subjective 2 Subjective: No abdominal pain Tolerating p.o. Vitals/I&O/Wt Last Vital Signs Temp 97.8 F 10/31/24 07:49 Pulse 80 10/31/24 07:49 Resp 16 10/31/24 07:49 BP 158/90 10/31/24 07:49 Pulse Ox 93 10/31/24 07:49 O2 Del Method Room Air 10/31/24 07:49 10/30/24 10/31/24 10/31/24 22:59 06:59 14:59 Intake Total 1280 / 1810 708.125 / 2518.125 240 / 240 Balance 1280 / 1810 708.125 / 2518.125 240 / 240 Weight last 48 hrs Weight 103 lb Weight 103 lb Physical Exam 2 Narrative: Chest: Unlabored breathing room air. No lymphadenopathy. Heart: Regular rate and rhythm. Abdomen: Soft, nontender, nondistended. No masses or lymphadenopathy. Data 10/30/24 04:36 10/30/24 04:36 A&P Assessment and plan (1) Metastatic malignant neoplasm of unknown primary site: (2) Colitis: (3) Colon abnormality: Plan 84-year-old female who presented with colitis. Pain-free and tolerating regular diet. Cleared for discharge. Can follow-up with her scope in 2 weeks. Scope will have to wait at least 6 weeks. PDMP PDMP Reviewed: Not Reviewed Attestations 2 Medical Necessity Statement*: N/A Coding Level of Care Code 75981 Diagnoses Metastatic malignant neoplasm of unknown primary site C79.9; C80.1 Colitis K52.9 Colon abnormality K63.9
[2024-10-31 11:01] VITALS: BP 158/90; PULSE 80; RESP 16; TEMP 36.6; O2SAT 93
--- NOTE | 2024-10-31 12:21 | PC.NURSE ---
Discussed discharge with patient and 4 other family members. Discussed new medications (antibiotics) and explained what they were for. Went over continued medications and follow up appointments. Patient and family verbalized understanding and medications were sent to the pharmacy.
== END 2024-10-31 11:15 | disposition home or self-care (01) | DRG 392 ==
LOC: ER 18:23 → MEDSURG 21:13
PROVIDERS: Internal Medicine; Admitting Provider Internal Medicine; Emergency Provider Emergency Medicine; Visit Provider Internal Medicine
DX: K52.9 Noninfective gastroenteritis and colitis, unspecified (principal); C80.0 Disseminated malignant neoplasm, unspecified; K59.00 Constipation, unspecified; I10 Essential (primary) hypertension; Z66 Do not resuscitate; F17.210 Nicotine dependence, cigarettes, uncomplicated; Z88.6 Allergy status to analgesic agent; Z88.1 Allergy status to other antibiotic agents; Z98.890 Other specified postprocedural states; J43.9 Emphysema, unspecified; I71.43 Infrarenal abdominal aortic aneurysm, without rupture; Z79.51 Long term (current) use of inhaled steroids; Z79.52 Long term (current) use of systemic steroids
CPT/HCPCS: 36415; 36416; 74177; 80048; 80053; 81001; 82378; 82962; 83540; 83550; 83605; 83690; 83735; 84100; 84145; 85025; 85651; 86140; 87040; 96365; 96372; 96375; 99285; J1650; J1756; J2270; J2405; J2543; J7030; J7512; J9999; Q9967